=== PATIENT | male | born 1955 | race Caucasian/White ===

== ENCOUNTER 2018-11-07 07:45 | Inpatient (IN) | payer BC ==
[2018-11-07] MEDS ORDERED: NS 0.9% 1000 ML** 1,000 ML IV ONE (07:56)
[2018-11-07] MEDS ORDERED: Albuterol 2.5 MG/3 ML NEB.SOL* (0.083%) INH ONE (08:04)
--- NOTE | 2018-11-07 08:06 | ED ---
Shortness of Breath - HPI Summary HPI Summary: Patient is a 63-year-old male who presents emergency department for shortness of breath and palpitations. Patient states he was diagnosed with bronchitis about a week ago and has had ongoing cough and wheeze. He also noted palpitations starting when he woke up today. He denies chest pain, fever, abdominal pain, vomiting, diarrhea, urinary symptoms. Past medical history of obesity, paroxysmal atrial fibrillation, hypertension, diabetes. Patient states that he goes in and out of A. fib without one time a week. He states the episodes last about 5-10 minutes and resolved. Patient states he is only taking a aspirin daily and does not anticoagulated. Patient last saw cardiology , Dr. Major, in 2008. Were he had a stress test, echocardiogram, Holter monitor. Patient notes that Dr. 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 Patient since has been taking an aspirin daily. Symptoms are moderate in severity. No current modifying factors. Patient currently taking diltiazem ER 360 mg, atenolol 25 mg daily, Actos and Lantus. - History of Current Complaint Chief Complaint: EDDysrhythmPalp Time Seen by Provider: 11/07/18 07:56 Hx Obtained From: Patient - Allergy/Home Medications Allergies/Adverse Reactions: Allergies Allergy/AdvReac Type Severity Reaction Status Date / Time clavulanic acid Allergy Diarrhea Verified 11/07/18 08:12 Home Medications: Home Medications Albuterol HFA INHALER* [Ventolin HFA Inhaler*] 2 puff INH Q4H PRN 11/07/18 [ History Confirmed 11/07/18] Aspirin [Aspirin Childrens 81 MG] 81 mg PO DAILY 11/07/18 [History Confirmed 08/23] Atenolol TAB* [Tenormin TAB* 25 MG] 25 mg PO DAILY 11/07/18 [History Confirmed 11/07/18] Insulin Glargine,Hum.rec.anlog [Lantus Solostar 5x3 ML PENS] 46 units SUBCUT DAILY 11/07/18 [History Confirmed 11/07/18] Pioglitazone TAB* [Actos TAB*] 45 mg PO DAILY 11/07/18 [History Confirmed ] dilTIAZem HCl [Diltiazem HCl ER] 360 mg PO DAILY 11/07/18 [History Confirmed 08/23] PMH/Surg Hx/FS Hx/Imm Hx Previously Healthy: Yes Infectious Disease History: No Infectious Disease History: Denies: Traveled Outside the [place] in Last 30 Days - Family History Known Family History: Positive: Non-Contributory - Social History Occupation: Employed Full-time Lives: Alone Review of Systems Constitutional: Negative Negative: Fever, Chills Eyes: Negative ENT: Negative Positive: Palpitations Positive: Shortness Of Breath, Cough Gastrointestinal: Negative Negative: Abdominal Pain, Vomiting, Diarrhea Genitourinary: Negative Skin: Negative Neurological: Negative All Other Systems Reviewed And Are Negative: Yes Physical Exam Triage Information Reviewed: Yes Vital Signs On Initial Exam: Initial Vitals Temp Pulse Resp BP Pulse Ox 98.4 F 103 16 162/88 95 11/07/18 07:48 11/07/18 07:48 11/07/18 07:48 11/07/18 07:48 11/07/18 07:48 Vital Signs Reviewed: Yes Appearance: Positive: Well-Appearing - Obese. Pt. sitting up in bed in NAD. Breathing easily on RA. Family member present. Skin: Positive: Warm, Dry Head/Face: Positive: Normal Head/Face Inspection Eyes: Positive: Normal, EOMI, YESENIA Neck: Positive: Supple Respiratory/Lung Sounds: Positive: Other - Diminished breath sounds throughout with mild expiratory wheeze in bases. Cardiovascular: Positive: IRR Abdomen Description: Positive: Nontender, Soft Musculoskeletal: Negative: Edema Left, Edema Right Neurological: Positive: Normal, CN Intact II-III Psychiatric: Positive: Affect/Mood Appropriate Diagnostics - Vital Signs Vital Signs Temp Pulse Resp BP Pulse Ox 11/07/18 07:48 98.4 F 103 16 162/88 95 - Laboratory Result Diagrams: 11/07/18 11:38 11/07/18 11:38 Lab Statement: Any lab studies that have been ordered have been reviewed, and results considered in the medical decision making process. Re-Evaluation - Re-Evaluation 1 Re-Evaluation Time: 09:47 Change: Improved Comment: Patient states feeling better. Breathing is better. Course/Dx - Course Course Of Treatment: Pt. presenting with worsening SOB, cough, and palpitations. Afebrile. HR 103bpm, resp. 16, O2 saturation 95% on RA, BP 162/ 88. Pt. has diminished breath sounds and slight wheeze. Will give breathing treatment. ECG done at 0758 shows afib at a rate of 110bpm, normal axis, ST depression in lateral leads. CBC unremarkable. DDimer, 235, glucose 203, troponin 1.13, BNP 231. Case discussed with cardiology, Dr. Bangura at 0855. He recommends starting heparin and beta kylie for rate control. 0900: Pt.'s rate increased into the 160-170's and O2 saturation dropping in to the 80's. Pt. examined by Dr. Bowman. He recommends cardizem instead of BB given possible reactive airway disease. Pt. given bolus of cardizem and heparin and started on drips. Fluids stopped. 0910: Case discussed with cable supervisor, Dr. Mobley, who will see pt. 1030: Pt. examined by Dr. Mobley. He recommends admission to hospitalist service. 1057: Case discussed with Dr. Colon, hospitalist, she will see pt. CTA ordered to r/o PE. CTA per radiology: IMPRESSION: 1. LIMITED STUDY. THE ATTENUATION OF THE MAIN PULMONARY ARTERY IS LESS THAN 200. HOUNSFIELD UNITS WHICH IS CONSIDERED NONDIAGNOSTIC FOR THE DETECTION OF PULMONARY. EMBOLISM. 2. THERE IS MULTIFOCAL AIRSPACE DISEASE THROUGHOUT BOTH LUNGS. 3. SMALL BILATERAL PLEURAL EFFUSIONS. 4. CHOLELITHIASIS - Diagnoses Differential Diagnosis/HQI/PQRI: Positive: Asthma, Bronchitis, CHF, COPD Exacerbation, [place], Pneumonia Provider Diagnoses: Atrial fibrillation, CHF (congestive heart failure) - Critical Care Time Critical Care Time: 30-74 min - 30 minutes including direct pt. care and consultations. Excludes billable procedures. Discharge - Sign-Out/Discharge Documenting (check all that apply): Patient Departure Patient Received Moderate/Deep Sedation with Procedure: No - Discharge Plan Condition: Stable Disposition: ADMITTED TO [facility] - Billing Disposition and Condition Condition: STABLE Disposition: Admitted to [facility]
[2018-11-07 08:29] LABS: ABS Eosinophils 0.2 10^3/ul (0-0.6); ABS Lymphocytes 1.1 10^3/ul (1.0-4.8); ABS Monocytes 0.6 10^3/ul (0-0.8); ABS Neutrophils 5.6 10^3/ul (1.5-7.7); Eosinophil % 2.3 %; Hematocrit 39 % (42-52); Lymphocyte % 14.6 %; Mean Corpuscular HGB Conc 33 g/dL (31-36); Mean Corpuscular Hemoglobin 29 pg (27-31); Mean Corpuscular Volume 86 fL (80-94); Mean Platelet Volume 7.4 fL (7.4-10.4); Nucleated Red Blood Cells % 0.1; Platelet Count 239 10^3/uL (150-450); Red Blood Count 4.53 10^6 /uL (4.18-5.48); Red Cell Distribution Width 14 % (10.5-15); White Blood Count 7.6 10^3/uL (3.5-10.8)
[2018-11-07 08:40] LABS: ALT 13 U/L (7-52); AST 18 U/L (13-39); Albumin 3.9 g/dL (3.2-5.2); Albumin/Globulin Ratio 1.2 (1-3); Alkaline Phosphatase 89 U/L (34-104); Anion Gap 7 mmol/L (2-11); BUN/Creatinine Ratio 17.3 (8-20); Blood Urea Nitrogen 19 mg/dL (6-24); CO2 Carbon Dioxide 27 mmol/L (22-32); Calcium 9.3 mg/dL (8.6-10.3); Chloride 103 mmol/L (101-111); EGFR African American 82.1 (>60); EGFR Non-African American 67.8 (>60); Globulin 3.2 g/dL (2-4); Glucose 203 mg/dL (70-100); Magnesium 2.1 mg/dL (1.9-2.7); Potassium 3.9 mmol/L (3.5-5.0); Sodium 137 mmol/L (135-145); Total Protein 7.1 g/dL (6.4-8.9)
[2018-11-07 08:50] LABS: Troponin I 1.13 ng/mL (<0.04)
[2018-11-07] MEDS ORDERED: Diltiazem IV push/loading dose 5 MG/ML 5 ML vial (25 mg) IV SLOW PU ONE ×3 (08:56→10:06)
[2018-11-07 09:03] LABS: INR 0.98 (0.82-1.09)
[2018-11-07] MEDS ORDERED: Iodixanol* (CONTRAST) 320 MG/ML 100 ML SDV IV ONE (09:11)
--- NOTE | 2018-11-07 09:13 | ED ---
Progress - Progress Note Progress Note: EVALUATING PATIENT AT REQUEST OF SOTERO JOYCE HPI: A 63 y/o M presents to ED with sudden-onset SOB this AM. Associated sx: pounding palpitations. Pt has had bronchitis for past 8 weeks. He sleeps with two pillows. He denies recent travel, surgery and long periods of inactivity. Denies PMHx: DVT. Denies FHx of DVT. 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 Sees Dr. Major, cardio, but last visit was approx 10 years ago. Vitals at bedside: HR: 152 bpm, BP: 168/124, O2 sat: 98%. PE: Constitutional: Well-developed, Well-nourished, Alert. (-) Distressed Skin: Warm, Dry HENT: Normocephalic; Atraumatic Eyes: Conjunctiva normal Neck: Musculoskeletal ROM normal neck. (-) JVD, (-) Stridor, (-) Tracheal deviation Cardio: Rhythm regular, rate normal, Heart sounds normal; Intact distal pulses; The pedal pulses are 2+ and symmetric. Radial pulses are 2+ and symmetric. (-) Murmur Pulmonary/Chest wall: Tachypniec, coarse rales Abd: Soft, (-) epigastric tenderness, (-) Distension, (-) Guarding, (-) Rebound Musculoskeletal: (-) Edema Lymph: (-) Cervical adenopathy Neuro: Alert, Oriented x3 Psych: Mood and affect Normal - Results/Orders Results/Orders: CXR as read by radiologist: IMPRESSION: THERE HAS BEEN INTERVAL DEVELOPMENT OF A PATTERN OF PULMONARY INTERSTITIAL EDEMA WITH PATCHY AIRSPACE DISEASE OF THE RIGHT LUNG BASE. GIVEN THE SHORT INTERVAL FROM THE PREVIOUS EXAMINATION, THIS LIKELY REPRESENTS ATELECTASIS. ED provider has reviewed this report. Re-Evaluation - Re-Evaluation 1 Re-Evaluation Time: 09:47 Change: Improved Comment: Patient states feeling better. Breathing is better. Course/Dx - Course Course Of Treatment: Evaluating patient at request of SOTERO Banegas. Patient is a 63 y/o M presenting with sudden-onset SOB this morning. He reports bronchitis for past 8 weeks. No PMHx: DVT. PE finds tachypnea, coarse rales. Patient given Diltiazem and Heparin IV in ED. DDx: rate-elevated CHF vs DVT. CXR shows "THERE HAS BEEN INTERVAL DEVELOPMENT OF A PATTERN OF PULMONARY INTERSTITIAL EDEMA WITH PATCHY AIRSPACE DISEASE OF THE RIGHT LUNG BASE. GIVEN THE SHORT INTERVAL FROM THE PREVIOUS EXAMINATION, THIS LIKELY REPRESENTS ATELECTASIS. " - Diagnoses Provider Diagnoses: Atrial fibrillation, CHF (congestive heart failure) Discharge - Sign-Out/Discharge Documenting (check all that apply): Patient Departure - ADMIT Patient Received Moderate/Deep Sedation with Procedure: No - Discharge Plan Condition: Stable Disposition: ADMITTED TO [facility] Referrals: Asher Gaffney MD [Primary Care Provider] - - Attestation Statements Document Initiated by Scribe: Yes Documenting Scribe: Kristen Del Rio Provider For Whom Scribe is Documenting (Include Credential): Dr. Shorty Bowman MD Scribe Attestation: Kristen Venegas, scribed for Dr. Shorty Bowman MD on 11/07/18 at 1058. Status of Scribe Document: Ready
[2018-11-07 09:15] LABS: TSH (Thyroid Stimulating Horm) 3.65 mcIU/mL (0.34-5.60)
[2018-11-07] MEDS ORDERED: Heparin DRIP 25,000 UNITS(*) 25,000 UNITS/500 ML BAG IV SCH (09:15)
[2018-11-07] MEDS ORDERED: Heparin DRIP 25,000 UNITS(*) 25,000 UNITS/500 ML BAG ONE (09:17)
[2018-11-07] MEDS: Heparin VIAL(*) 5000 UNITS/ML VIAL (FIVE THOUSAND) IV SCH ×2 (09:18→14:00)
[2018-11-07] MEDS ORDERED: Iodixanol 320 (CONTRAST) 100 ML SDV IV ONE (09:48)
[2018-11-07] MEDS ORDERED: Diltiazem IV VIAL* 125 MG in NS 0.9% 100 ML* 100 ML IVPB SCH (10:00)
[2018-11-07] MEDS ORDERED: Diltiazem DRIP* 100 MG/100 ML ADDV.BAG IVPB SCH (10:00)
[2018-11-07 11:47] LABS: ABS Lymphocytes 0.6 10^3/ul (1.0-4.8); ABS Monocytes 0.6 10^3/ul (0-0.8); ABS Neutrophils 8.6 10^3/ul (1.5-7.7); Eosinophil % 0.2 %; Hematocrit 39 % (42-52); Lymphocyte % 5.8 %; Mean Corpuscular HGB Conc 33 g/dL (31-36); Mean Corpuscular Hemoglobin 29 pg (27-31); Mean Corpuscular Volume 86 fL (80-94); Mean Platelet Volume 7.2 fL (7.4-10.4); Platelet Count 254 10^3/uL (150-450); Red Blood Count 4.53 10^6 /uL (4.18-5.48); Red Cell Distribution Width 15 % (10.5-15); White Blood Count 9.8 10^3/uL (3.5-10.8)
[2018-11-07 12:27] LABS: Troponin I 0.91 ng/mL (<0.04)
[2018-11-07] MEDS ORDERED: Acetaminophen TAB* 325 MG PO PRN (12:33)
[2018-11-07] MEDS ORDERED: Albuterol HFA INHALER* 8 gm MDI INH PRN (12:36)
[2018-11-07 12:37] LABS: EGFR African American 90.6 (>60); EGFR Non-African American 74.9 (>60)
[2018-11-07] MEDS ORDERED: Dextrose 50% Syringe 50 ML* 25 GM/50 ML SYRINGE IV PUSH PRN (12:45)
[2018-11-07] MEDS: Atenolol TAB* 25 MG PO SCH (13:05)
[2018-11-07 13:08] LABS: Cholesterol 152 mg/dL; HDL Cholesterol 39.9 mg/dL; LDL Cholesterol 102 mg/dL; Triglycerides 49 mg/dL
[2018-11-07] MEDS ORDERED: Heparin for STEMI(*) 5,000 UNITS/ML 1 ML VIAL IV ONE (13:56)
--- NOTE | 2018-11-07 13:57 | HP ---
HISTORY AND PHYSICAL: DATE OF SERVICE: 11/07/18 CHIEF COMPLAINT: Shortness of breath. 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 He presents with acute shortness of breath. The shortness of breath developed this morning. The patient stated that for the past 8 weeks though he has "bronchitis" and had been taking nebulizer without great effect. He did have shortness of breath during this time, but not as severe as this morning. He has no history of COPD or lung disease. The patient today denies any chest pain , diaphoresis, presyncope, or syncope. He has never had any cardiac issues except for some hypertension for which he takes Tylenol. He does sometimes have palpitations and he does have a history of atrial fibrillation in the past. He only takes aspirin and a beta-kylie for this. Because of his work, he was told he would bruise easily and probably should refrain from full anticoagulation. This was several years back. The patient was seen in the emergency room. His systolic blood pressure is in the 140s to 150s with heart rate in the low 100s and he is breathing around 16 to 20 and satting between 91% and 97%. On ultrasound by myself in the emergency room, the patient has a large amount of B lines consistent with pulmonary edema. He also has moderately enlarged RV without any bowing into the LV. He has moderate LV function at the moment. In the ED, the patient received diltiazem pushes without relief of his heart rate. He was then placed on Heparin and a diltiazem drip. He was also assessed for a pulmonary embolism. However, secondary to some study issues, the study was inconclusive. PAST MEDICAL HISTORY: Hypertension; atrial fibrillation, on aspirin and beta- kylie; diabetes. PAST SURGICAL HISTORY: Negative. HOME MEDICATIONS: 1. Atenolol 25 mg p.o. daily. 2. Pioglitazone 45 mg p.o. daily. 3. Diltiazem HCl 360 p.o. daily. ALLERGIES: CLAVULANIC ACID gives him diarrhea. FAMILY HISTORY: No history of cardiac disease. 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 He has a rather strenuous job. He does not smoke or drink. REVIEW OF SYSTEMS: Negative on all 12-points except as stated above. PHYSICAL EXAMINATION GENERAL: He is conversational, joking and in no acute distress. HEENT: Temperature is 98.4, pulses 110 to 120, respiratory rate is 12 to 16, blood pressure is 150s to 160s, O2 sat is 93% to 98% on a nonrebreather. HEART: Irregularly regular. LUNGS: Crackles bilaterally. ABDOMEN: Obese, positive bowel sounds, soft, nontender to palpation. EXTREMITIES: 2+ lower extremity edema up to the knees. DIAGNOSTIC STUDIES/LAB DATA: White blood cell count is 7.6, hemoglobin is 13, hematocrit is 39, platelets 239. Sodium is 137, potassium is 3.9, chloride is 103, bicarb is 27, BUN 19, creatinine is 1.10. INR is 0.98. Magnesium 2.1, calcium is 9.3, troponin is 1.13. BNP is 231. TSH is 3.65, albumin is 3.9. EKG demonstrates rapid atrial fibrillation with some precordial ST depressions. Chest x-ray shows pulmonary edema bilaterally. ASSESSMENT: A 63-year-old diabetic with a history of atrial fibrillation, not on anticoagulation secondary to social issues, presents with acute shortness of breath. He was evaluated in the emergency room. On exam, he is in rapid atrial fibrillation. He is normotensive though. Systolic blood pressures have been in the 140s to 150s. He is in no acute distress. He does have findings of fluid overload and on exam especially in his lower extremities and his lungs. Ultrasound done by myself also showed significant fluid in his lungs on exam. Labs were remarkable for elevated troponins at 1.13, BNP of 231, elevated sugars. Otherwise, his labs were for the most part unremarkable. PLAN: 1. Cardiac. [id number] myocardial infarction with superimposed rapid atrial fibrillation and complicated by flash pulmonary edema. Would refrain from any further fluids. We will give him some Lasix as well. We will continue diltiazem drip. Continue to trend the troponins in light of his elevated troponins. The patient is at high risk for coronary artery disease. So, I would get Cardiology involved in case he needs a cardiac cath. As he again is high risk patient for coronary vascular disease. 2. Respiratory. It does not appear that he has massive or submassive PE at the moment. However, since we could not get a CTA, we will get a lower extremity Doppler to rule out lower extremity deep vein thromboses. He is already anticoagulated, so this would also cover him if he has any clot. Depending on how he does in the next 24 to 48 hours the primary team could assess whether or not he needs to have again a PE protocol CT. However, again he could be fully anticoagulated, so he is covered, incase he does have a PE. 3. Endo. Insulin sliding scale. Diabetic diet. As the patient is hemodynamically stable at the moment and not in acute respiratory failure, the patient does not need acute ICU interventions at the moment. However, if he were to decompensate or become hemodynamically unstable or develop acute respiratory failure, please reconsult critical care services for a possible ICU bed. [id number]/[facility] #: [id number] TAYE
--- NOTE | 2018-11-07 14:13 | ECHO ---
*[facility]* [facility] [place] [address] Fax #: [phone] Patient: Julio Cesar, Height: 71 in / 180.3 Jaspal alvarez : 1955 Weight: 249.5 lb / Study Date: 11/07/2018 113.4 kg Age: 63 BP: Gender: M BMI/BSA: 34.9 kg/m^2 / HR: 2.42 m^2 *Kiln Mechanic: * Namrata Bills [facility] *Referring Physician: * Sherman Banegas *Reading Physician: * Dexter Bangura MD Conclusions Summary: 1. Left ventricle: The cavity size is normal. Wall thickness is mildly increased. Systolic function is mildly reduced. The estimated ejection fraction is 45-50%. Wall motion is normal; there are no regional wall motion abnormalities. 2. Right ventricle: The cavity size is normal. Wall thickness is mildly to moderately increased. 3. Mitral valve: There is mild to moderate regurgitation. 4. Aortic valve: There is no evidence of stenosis. 5. Tricuspid valve: There is no significant regurgitation. Unable to estimate PASP. 6. Pericardium, extracardiac: There is no significant pericardial effusion. Study data: Procedure: Transthoracic echocardiography was performed. Complete 2D, spectral Doppler, and color flow Doppler. Location: Procedure room. Findings Left ventricle: The cavity size is normal. Wall thickness is mildly increased. Systolic function is mildly reduced. The estimated ejection fraction is 45-50%. Wall motion is normal; there are no regional wall motion abnormalities. Left ventricular diastolic function parameters are indeterminate. Right ventricle: The cavity size is normal. Wall thickness is mildly to moderately increased. Systolic function is normal. Left atrium: The atrium is normal in size. Right atrium: The atrium is normal in size. Mitral valve: The leaflets are mildly thickened. There is no evidence of stenosis. There is mild to moderate regurgitation. Aortic valve: Not well visualized. The leaflets are mildly thickened. There is no evidence of stenosis. There is no significant regurgitation. Tricuspid valve: The leaflets are normal thickness. There is no evidence of stenosis. There is no significant regurgitation. Pulmonic valve: Not well visualized. There is no significant regurgitation. Aorta: Aortic root: The aortic root is mildly dilated. Ascending aorta: The ascending aorta is appears normal. Aortic arch: The aortic arch is mildly dilated. Pericardium: There is no significant pericardial effusion. Pulmonary arteries: Not well visualized. Systemic veins: Inferior vena cava: The vessel is dilated. The respirophasic diameter changes are in the normal range (>= 50%). Measurements Left ventricle Value Ref Aortic valve Value Ref JOSIAH, LAX 4.8 cm 4.2 - 5.8 Juan diam, ED 2.4 cm ---- ESD, LAX 3.1 cm 2.5 - 4.0 Peak v, S 1.42 m/sec ---- FS, LAX 35 % 25 - 43 Peak grad, S 8.1 mm Hg ---- PW, ED, LAX (H) 1.1 cm 0.6 - 1.0 EF 64 % 52 - 72 Mitral valve Value Ref E', lat juan, TDI (L) 9.5 cm/sec >=10.0 Peak E 1.19 m/sec - --- E/e', lat juan, 13 Peak A 0.01 m/sec ---- TDI VTI leaflet coapt 23.6 cm ---- Decel time 224 ms ---- LVOT Value Ref PHT 77 ms ---- Peak omar, S 1 m/sec Mean grad, D 2.7 mm Hg ---- Peak grad, S 4 mm Hg Peak grad, D 6.0 mm Hg ---- Peak E/A ratio 86.29 ---- Ventricular septum Value Ref MVA, PHT 2.9 cm^2 ---- IVS, ED (H) 1.3 cm 0.6 - 1.0 MR peak v 4.75 m/sec ---- ERO, PISA 0.33 cm^2 ---- Right ventricle Value Ref MR vol, PISA 40 ml ---- AW thickness, ED (H) 1.0 cm 0.1 - 0.5 JOSIAH, LAX 2.9 cm Aortic root Value Ref JOSIAH major ax, A4C (L) 2.7 cm 5.9 - 8.3 Root diam 3.6 cm <4.5 Left atrium Value Ref Ascending aorta Value Ref AP dim, ES 3.53 cm 3.00 - AAo AP diam, S 3.0 cm ---- 4.00 ML dim, A4C 3.5 cm Aortic arch Value Ref SI dim, A4C 5.5 cm Arch diam 3.6 cm ---- Vol/bsa, ES, 2-p 27 ml/m^2 16 - 34 Decending aorta Value Ref Right atrium Value Ref Raj peak omar 0.58 m/sec ---- SI dim, ES (H) 5.5 cm 3.4 - 5.3 ML dim, ES, A4C (H) 4.7 cm 2.6 - 4.4 Inferior vena cava Value Ref Estimated RAP 3 mm Hg Diam 2.8 cm ---- Legend: (L) and (H) alexi values outside specified reference range. Prepared and electronically signed by Dexter Bangura MD 11/07/2018 14:13
[2018-11-07 16:05] LABS: Troponin I 1.32 ng/mL (<0.04)
[2018-11-07] MEDS: Insulin LISPRO* 1 UNITS UNIT SUBCUT SCH (16:53)
[2018-11-07] MEDS: Insulin GLARGINE(*) 1 UNITS UNIT SUBCUT SCH (17:56)
[2018-11-07] MEDS ORDERED: Diazepam TAB(*) 5 MG PO PRN (18:41)
[2018-11-07] MEDS ORDERED: diPHENhydraMINE PO* 25 MG PO PRN (18:41)
--- NOTE | 2018-11-07 20:12 | CONS ---
CARDIOLOGY CONSULTATION: DATE OF CONSULT: 11/07/18 INDICATION FOR CONSULTATION: Atrial fibrillation, abnormal troponin level. HISTORY OF PRESENT ILLNESS: The patient is a 63-year-old gentleman with a history of paroxysmal atrial fibrillation. He had actually seen Dr. Major in 2008 for his paroxysmal atrial fibrillation. The patient states that over the past 2 weeks or so, he has been having episodes of epigastric discomfort. Sometimes they occur with exertion, sometimes at rest. He denied any belching associated with this epigastric discomfort. The patient states that when he went to do any activity in the last 2 weeks, he would feel more short of breath than his usual and have this epigastric discomfort. It would go away at rest. There is no association with food associated with this epigastric discomfort. This morning, the patient was awoken out of a sound sleep with severe shortness of breath. The patient states that it is difficult for him to take a deep breath. It was difficult from him to inhale. He was also having this epigastric discomfort. He denied any feeling of palpitations. He denied any lightheadedness, dizziness, or syncope. On arrival to the emergency room, the patient was in atrial fibrillation with rapid ventricular response. He was given IV Cardizem. His initial troponin level was 0.91, his second troponin was 1.32. The patient had an echocardiogram today, which showed low normal LV systolic function, ejection fraction of 50%. He had mild to moderate mitral regurgitation. No aortic stenosis. No significant tricuspid regurgitation. Unable to estimate PA systolic pressures. In speaking to the patient in the intensive care unit, he has no complaints. He is talking in full sentences. He has no discomfort. PAST MEDICAL HISTORY: Significant for: 1. Paroxysmal atrial fibrillation, which I think may be chronic. 2. Hypertension. PAST SURGICAL HISTORY: None. MEDICATIONS: Outpatient medications: 1. Atenolol 25 mg a day. 2. Actos 45 mg a day. 3. Insulin as directed. 4. Aspirin 81 mg a day. 5. Diltiazem 360 mg a day. ALLERGIES: CLAVULANIC ACID. 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 He denies tobacco or alcohol use. FAMILY HISTORY: No family history of early coronary artery disease. No history of atrial arrhythmias. REVIEW OF SYSTEMS: Positive for recent chest pain. Negative for fevers and chills. Negative for changes in bowel or bladder habits. Other 12-point review is unremarkable. PHYSICAL EXAM: Height is 6 feet, weight 250 pounds, temperature 97.8, heart rate is 66, blood pressure 124/75, respiratory rate is 17, oxygen saturation 94 % on room air. Sclerae anicteric. Oropharynx is pink without erythema. Carotids are 2+ without bruits. JVD is normal. Thyroid is normal. Cardiac exam: Irregular. S1, S2, without any murmurs, rubs, or gallops. PMI is normal. Lungs are clear to auscultation bilaterally. There is no dullness to percussion. Abdomen is soft, nontender, nondistended with normoactive bowel sounds. Extremities show no edema. He has 2+ pulses throughout. The patient is awake, alert, and oriented. He moves all 4 extremities equally. LABORATORY STUDIES: CBC within normal limits. Chemistry is within normal limits. BUN 17, creatinine 1.01. Total cholesterol 152, LDL 102, HDL of 40. IMAGING: EKG shows atrial fibrillation. No obvious ST depressions. IMPRESSION: This is a 63-year-old gentleman who came to the emergency room because of sudden onset of shortness of breath this morning. The patient has been experiencing epigastric discomfort with exertion over the last 2 weeks. The patient states he has paroxysmal atrial fibrillation. The patient states that originally they would occur every couple of months, but recently, it has been almost on a weekly basis that he has been having episodes of atrial fibrillation. The patient is in atrial fibrillation in the ICU and is unaware of that he is in atrial fibrillation. It is my evaluation that the patient probably now has been in chronic atrial fibrillation for quite some time. My evaluation is that the patient's sudden onset of shortness of breath today is more consistent with an acute coronary syndrome with an elevated troponin level than it is a sudden onset of atrial fibrillation. With that, I think it is my recommendation that the patient undergo cardiac catheterization. The patient does have risk factors of hypertension and diabetes. For now, my recommendation is the patient should have a cardiac catheterization. The patient will continue on his outpatient medications. Further recommendations pending results of his cardiac cath. At some point, we may consider cardioversion. [id number]/[facility] #: [id number] [facility] HOSPITALPedro Pablo
[2018-11-07] MEDS ORDERED: Morphine INJ* 2 MG/ML 1 ML SYRINGE (TWO MG - NEW SYRINGE VERSION) IV PRN (23:45)
[2018-11-08 00:10] LABS: Troponin I 1.59 ng/mL (<0.04)
--- NOTE | 2018-11-08 03:48 | HP ---
CC: Dr. Gaffney * HISTORY AND PHYSICAL: DATE OF ADMISSION: 11/07/18 PROVIDER: Ciera Caballero NP, Hospital Medicine. PRIMARY CARE PHYSICIAN: Dr. Gaffney. ATTENDING PHYSICIAN WHILE IN THE HOSPITAL: Dr. Terrie Colon * (dictated by Ciera Caballero NP). CHIEF COMPLAINT: Shortness of breath. HISTORY OF PRESENT ILLNESS: Mr. Harrell is a 63-year-old male who reports that he woke out of sleep at approximately 5:15 a.m. this morning. He felt like he could not get enough air in. He felt very short of breath. He does report that sitting up on the edge of the bed did help with his breathing some, but continued to be short of breath. He felt like his heart was skipping beats and that he was in atrial fibrillation. The patient reports that he does go in and out atrial fibrillation. He reports that he felt a tightness in his chest. He reports at home he took 2 baby aspirin for a total of 162 mg. The patient reports that over the past 9 weeks, he has been fighting bronchitis. He went to [facility] approximately 4 weeks ago and was treated for a sinus infection with antibiotics and reports that he was feeling better. He says over the last week , he is feeling quite well and his cough had subsided to the point he was only having occasional residual cough, but this morning when he woke at 5:15, he was significantly short of breath. The patient also reports that he has had left-sided chest pressure. The patient reports that when he carries groceries up the stairs in his house, he develops left- sided chest pressure. This has been happening for the past 2 weeks. He reports that it is relived with rest and subsides after approximately 5 minutes. He does report he has also had some increased shortness of breath with walking upstairs and doing activities in general for past 1 to 2 weeks and rest improves. He denies any significant weight gain. Denies any need for extra pillows for sleeping. The patient reports that he used to follow with Dr. Major, but has not seen a garbage stoker in several years. While in the emergency room, the patient had routine lab work drawn. He was placed on the monitor, he was found to be in rapid atrial fibrillation and had an elevated troponin. Due to these findings, we were asked to see and evaluate him for admission. PAST MEDICAL HISTORY: Significant for: 1. Diabetes type 2. 2. Atrial fibrillation. 3. Hypertension. 4. History of basal cell skin cancer. PAST SURGICAL HISTORY: Hernia repair. HOME MEDICATIONS: Include: 1. Diltiazem 360 mg p.o. daily. 2. Actos 45 mg p.o. daily. 3. Albuterol inhaler as needed for shortness of breath. 4. Lantus 46 units subcu daily. 5. Atenolol 25 mg p.o. daily. 6. Aspirin 81 mg p.o. daily. ALLERGIES: AUGMENTIN. FAMILY HISTORY: Father with history of atrial fibrillation. Brother and sisters with diabetes. Sister with skin cancer. SOCIAL HISTORY: The patient denies any tobacco, alcohol, or illicit drug use. He is single. He lives with his housemate. Surrogate decision maker in the event he is unable to make his own decision is his mom or female friend, Bere Edwards. He is a full code. REVIEW OF SYSTEMS: The patient denies any fever, chills, unintended weight weight loss. Denies any weight gain. He does reports some chest tightness, worse with exertion. Denies any edema. Denies any hemoptysis. He does reports shortness of breath. He does report a nonproductive cough. Denies any nausea, vomiting, diarrhea, or abdominal pain. Denies any gross hematuria, dysuria, focal weakness, or sensory loss. Denies any visual complaints, dysphagia, arthralgias, myalgias, rashes, lesions, or open sores. Denies any psychosis or anxiety. PHYSICAL EXAMINATION GENERAL: At this time, Mr. Harrell is a 63-year-old male. He is well developed, well nourished. He is resting comfortably on the stretcher in the emergency room. VITAL SIGNS: Blood pressure 147/92, heart rate is 98 to 107, respirations are 20, O2 saturations 97%, temperature was 98.4. HEENT: Head is atraumatic, normocephalic. Eyes: EOMs are intact. Sclerae anicteric and not pale. Oral mucous appeared to be moist. NECK: Supple. LUNGS: Diminished bilaterally with few scattered rhonchi in the bases. He has symmetrical raise of his chest. CARDIAC: S1, S2. Irregular rate and rhythm. No murmurs, rubs, or gallops. ABDOMEN: Soft and nontender. Bowel sounds are present x4. EXTREMITIES: He is able to move all 4 extremities with 5/5 strength. There is no edema. Pedal pulses are +2 bilaterally. Skin is intact. NEUROLOGIC: He is awake, alert, oriented x3. Speech is clear. Thought process is intact. There are no gross focal deficits. LABORATORY DATA AND DIAGNOSTIC STUDIES: WBCs 9.8, RBCs 4.53, hemoglobin was 13.0, hematocrit was 39, platelet count was 254. INR was 0.98. D-dimer was 235. Sodium 137, potassium 3.9, chloride 103, carbon dioxide 27, anion gap was 7, BUN was 19, creatinine 1.10, glucose was 203, hemoglobin A1c was 10.4, lactic acid 0.7, calcium 9.3, magnesium 2.1. Total bilirubin 0.40, ASTs were 18 , ALTs were 13, alkaline phosphatase was 89. Troponin was 1.13, repeat was 0.91. Cholesterol 152, LDL is 102, HDL was 39.9. TSH was 3.65. BNP was 231. Chest x-ray, radiologist's impression: This is a chest x-ray from 8:05; mild cardiomegaly, COPD with mild fibrotic changes. He had a CT of the chest, limited study, the attenuation of the main pulmonary artery is less than 200 Hounsfield units, which is considered nondiagnostic for detection of pulmonary embolism. There is multifocal airspace disease throughout both lungs, small bilateral pleural effusions, cholelithiasis. He had a repeat chest x-ray at 9:10, which showed there has been interval development of of pulmonary interstitial edema with patchy airspace disease of right lung base, given the short interval from previous exam likely represents atelectasis. He had a transthoracic echocardiogram. Left ventricle cavity size is normal, wall thickness is mildly increased, systolic function is mildly reduced, and estimated ejection fraction 45% to 50%, wall motion is normal, there is no regional wall motion abnormality. Right ventricle cavity size is normal, wall thickness is mildly to moderately increased. Mitral valve, there is mild to moderate regurg. Aortic valve, there is no evidence of stenosis. Tricuspid valve, there is no significant regurgitation to estimate the PASP. Pericardium , extra cardiac, there is no significant pericardial effusion. He had a venous Doppler of the bilateral lower extremities. No evidence of right or left lower extremity DVT. He had electrocardiogram which showed atrial fibrillation with mild elevation of the ST segment in aVR, ST depression in V2, V3, 4, 5. ASSESSMENT AND PLAN: Mr. Harrell is a 63-year-old male with past medical history significant for diabetes, atrial fibrillation, hypertension who presented to the emergency room with complaint of sudden onset of shortness of breath, occurring at approximately 5:15 this morning. He was found to be in rapid atrial fibrillation. He will be admitted to the ICU with: 1. Shortness of breath. I suspect this could be related to acute coronary syndrome. The patient does have an elevated troponin and ST changes on his EKG. Dr. Bangura from Cardiology was consulted. The patient was started on heparin drip. He took aspirin 162 mg at home prior to arrival. He was given albuterol neb in the emergency room. He was given Cardizem bolus total of 35 mg and then started on a drip. His heart did improve after the initiation of the Cardizem drip down into the 90s from the 140s. The patient was started on a heparin drip. We will continue the Cardizem drip at 5 mg per hour. I will add atenolol 25 mg p.o. now. I will continue on his heparin drip and further recommendations per Cardiology. We will continue to trend his troponin and repeat an EKG in the a.m. I did speak to Dr. Bangura, who will see the patient in consultation. 2. Diabetes. I will place him on Accu-Cheks a.c. and h.s. He will be placed on lispro sliding scale. I will hold his Actos and I will continue his Lantus. He does normally takes 46 units, so I will give him 30 units this evening as he is going to be n.p.o. for cardiac catheterization tomorrow after midnight. 3. History of atrial fibrillation. The patient is currently on a Cardizem drip. We will continue the Cardizem drip and continue his atenolol 25 mg p.o. daily. 4. Hypertension. He will continue on atenolol 25 mg p.o. daily. 5. Code status: He is a full code. 6. DVT prophylaxis: He is on a heparin drip. 7. FEN. He can have a heart healthy, no caffeine diet. TIME SPENT: Time spent on this admission was approximately 60 minutes, greater than half that time was spent at the bedside reviewing events leading thus far to his hospitalization, performing physical exam, and reviewing my plan of care. I have discussed this with my attending, Dr. Terrie Colon; she is in agreement with my plan. CIERA CABALLERO, ADMISSIONS OFFICER [id number]/CPS #: [id number] TAYE
[2018-11-08] MEDS ORDERED: Diltiazem IV VIAL* 125 MG in NS 0.9% 100 ML* 100 ML IVPB SCH (06:00)
[2018-11-08 06:50] LABS: ABS Eosinophils 0.1 10^3/ul (0-0.6); ABS Lymphocytes 1.3 10^3/ul (1.0-4.8); ABS Monocytes 0.9 10^3/ul (0-0.8); Eosinophil % 0.8 %; Hematocrit 39 % (42-52); Hemoglobin 12.9 g/dL (14.0-18.0); Lymphocyte % 11.8 %; Mean Corpuscular HGB Conc 33 g/dL (31-36); Mean Corpuscular Hemoglobin 29 pg (27-31); Mean Corpuscular Volume 87 fL (80-94); Mean Platelet Volume 7.7 fL (7.4-10.4); Platelet Count 232 10^3/uL (150-450); Red Blood Count 4.48 10^6 /uL (4.18-5.48); Red Cell Distribution Width 15 % (10.5-15); White Blood Count 11.3 10^3/uL (3.5-10.8)
[2018-11-08 07:00] LABS: BUN/Creatinine Ratio 14.9 (8-20); EGFR African American 98.4 (>60); EGFR Non-African American 81.3 (>60); Potassium 3.9 mmol/L (3.5-5.0)
[2018-11-08] MEDS ORDERED: NS 0.9% 1000 ML** 1,000 ML IV SCH (07:00)
[2018-11-08] MEDS ORDERED: Aspirin 81 mg CHEW TAB* 81 MG TAB.CHEW PO SCH (09:00)
[2018-11-08] MEDS: Atenolol TAB* 25 MG PO SCH (09:31)
[2018-11-08] MEDS: Insulin LISPRO* 1 UNITS UNIT SUBCUT SCH ×3 (09:33→17:13)
[2018-11-08] MEDS ORDERED: Aspirin 81 mg CHEW TAB* 81 MG TAB.CHEW PO ONE (10:53)
[2018-11-08 11:00] LABS: Troponin I 1.53 ng/mL (<0.04)
[2018-11-08] MEDS ORDERED: Iohexol 350 (CONTRAST) 200 ML MDV IV ONE ×2 (11:30→11:47)
[2018-11-08] MEDS ORDERED: Lidocaine 1% INJ* 10 MG/ML 30 ML SDV ONE ×2 (11:30→11:47)
[2018-11-08] MEDS ORDERED: Midazolam* 1 MG/ML 5 ML VIAL (5 MG) ONE (11:46)
[2018-11-08] MEDS ORDERED: VERAPAMIL 2.5 MG/ML 2 ML VIAL ** 5 mg/2 ml ONE (11:46)
[2018-11-08] MEDS ORDERED: Heparin 2 UNITS/ML IVPREMIX* 2,000 UNIT/1,000 ML BAG IV ONE (11:46)
[2018-11-08] MEDS ORDERED: fentaNYL* 50 MCG/ML 2 ML VIAL (100 MCG VIAL) ONE (11:46)
[2018-11-08] MEDS ORDERED: Heparin(*) 1000 UNIT/ML 10 ML VIAL CATH LAB IV ONE (11:46)
[2018-11-08] MEDS ORDERED: nitroGLYCERIN DRIP* 25,000 MCG/250 ML BTL ONE (11:47)
[2018-11-08] MEDS ORDERED: Heparin VIAL(*) 5000 UNITS/ML VIAL (FIVE THOUSAND) ONE (14:04)
[2018-11-08] MEDS ORDERED: Heparin VIAL(*) 5000 UNITS/ML VIAL (FIVE THOUSAND) IV SCH (15:00)
[2018-11-08] MEDS ORDERED: Heparin DRIP 25,000 UNITS(*) 25,000 UNITS/500 ML BAG IV SCH (15:00)
--- NOTE | 2018-11-08 17:03 | PN ---
Subjective Date of Service: 11/08/18 Interval History: HOSPITALIST PROGRESS NOTE Patient seen and examined at bedside. Care reviewed and d/w Brittni Milian RN. He feels well today.Chest pain is resolved, denies dyspnea. Family History: Unchanged from Admission Social History: Unchanged from Admission Past Medical History: Unchanged from Admission Objective Active Medications: Acetaminophen (Tylenol Tab*) 650 mg PO Q4H PRN PRN Reason: FEVER/PAIN Albuterol (Ventolin Hfa Inhaler*) 2 puff INH Q4H PRN PRN Reason: SOB/WHEEZING Atenolol (Tenormin Tab*) 25 mg PO DAILY [facility] Last Admin: 11/08/18 09:31 Dose: 25 mg Dextrose (D50w Syringe 50 Ml*) 12.5 gm IV PUSH .FOR FS < 60 - SS PRN PRN Reason: FS < 60 Heparin Sodium (Porcine) (Heparin Vial(*)) 0 units IV .PER PROTOCOL [facility] Last Admin: 11/08/18 14:59 Dose: 2,000 units Sodium Chloride (Ns 0.9% 1000 Ml) 1,000 mls @ 100 mls/hr IV .per rate ANDREEA Stop: 11/08/18 17:00 Last Admin: 11/08/18 10:38 Dose: 100 mls/hr Diltiazem HCl 125 mg/ Sodium (Chloride) 125 mls @ 5 mls/hr IVPB Q24H [facility]; Protocol Last Admin: 11/08/18 07:00 Dose: 5 mls/hr Heparin Sodium/Dextrose (Heparin Drip 25,000 Units(*)) 25,000 units in 500 mls @ 0 mls/hr IV PER RATE [facility]; Protocol Insulin Glargine (Lantus(*)) 30 units SUBCUT Q24H [facility] Last Admin: 11/07/18 17:56 Dose: 30 units Insulin Human Lispro (Humalog*) 0 units SUBCUT AC ANDREEA; Protocol Last Admin: 11/08/18 11:39 Dose: Not Given Morphine Sulfate (Morphine Inj (Syringe))*) 2 mg IV Q4H PRN PRN Reason: PAIN - MILD Last Admin: 11/07/18 23:53 Dose: 2 mg Vital Signs - 8 hr 11/08/18 11/08/18 11/08/18 09:00 09:01 09:15 Temperature Pulse Rate 85 83 85 Respiratory 18 17 17 Rate Blood Pressure 122/92 141/76 (mmHg) O2 Sat by Pulse 86 96 95 Oximetry 11/08/18 11/08/18 11/08/18 09:30 10:00 10:30 Temperature Pulse Rate 89 82 75 Respiratory 20 14 13 Rate Blood Pressure 124/71 125/67 122/73 (mmHg) O2 Sat by Pulse 95 98 97 Oximetry 11/08/18 11/08/18 11/08/18 11:00 11:08 12:30 Temperature 97.7 F Pulse Rate 84 Respiratory 24 21 16 Rate Blood Pressure 142/83 (mmHg) O2 Sat by Pulse 97 Oximetry 11/08/18 11/08/18 11/08/18 12:31 12:32 12:45 Temperature Pulse Rate 69 74 73 Respiratory 32 24 14 Rate Blood Pressure 114/58 (mmHg) O2 Sat by Pulse 90 91 94 Oximetry 11/08/18 11/08/18 11/08/18 13:00 13:15 13:30 Temperature Pulse Rate 77 75 74 Respiratory 15 19 10 Rate Blood Pressure 117/78 118/74 (mmHg) O2 Sat by Pulse 96 97 97 Oximetry 11/08/18 11/08/18 11/08/18 13:45 14:00 14:15 Temperature Pulse Rate 83 78 83 Respiratory 21 15 17 Rate Blood Pressure 127/73 133/77 116/71 (mmHg) O2 Sat by Pulse 95 95 95 Oximetry 11/08/18 11/08/18 11/08/18 14:30 14:45 15:00 Temperature Pulse Rate 75 77 69 Respiratory 15 17 15 Rate Blood Pressure 116/66 123/66 136/73 (mmHg) O2 Sat by Pulse 96 96 95 Oximetry 11/08/18 11/08/18 11/08/18 15:15 15:30 15:45 Temperature Pulse Rate 69 67 75 Respiratory 17 13 20 Rate Blood Pressure 128/66 122/70 135/70 (mmHg) O2 Sat by Pulse 96 97 96 Oximetry 11/08/18 11/08/18 11/08/18 16:00 16:15 16:30 Temperature Pulse Rate 77 75 72 Respiratory 14 14 15 Rate Blood Pressure 127/76 133/89 132/79 (mmHg) O2 Sat by Pulse 96 96 96 Oximetry Oxygen Devices in Use Now: OxyMask - 2 liters Appearance: Pleasant gentleman sitting up in bed in NAD. Eyes: No Scleral Icterus Ears/Nose/Mouth/Throat: Mucous Membranes Moist Neck: Trachea Midline Respiratory: Symmetrical Chest Expansion and Respiratory Effort, Clear to Auscultation Cardiovascular: RRR - Normal S1 and S2 Abdominal: NL Sounds; No Tenderness; No Distention Neurological: Alert and Oriented x 3, NL Muscle Strength and Tone Result Diagrams: 11/08/18 05:50 11/08/18 05:50 Assess/Plan/Problems-Billing Assessment: Mr Harrell is a 63yo M with PMH of type 2 DM, HTN, Afib, who presented to ED with c/o dyspnea and left sided chest pressure, found to have NSTEMI. - Patient Problems (1) NSTEMI (non-ST elevated myocardial infarction) Comment: - Cardiology input appreciated - cardiac cath showed triple vessel disease and Dr Bangura made arrangements with Dr Purdy for transfer to [facility] for CABG. - Continue medical management with Aspirin, Atenolol, Heparin drip. - LDL 102 - start high dose Atorvastatin. (2) Atrial fibrillation Comment: - Rate is controlled - will increase Atenolol and titrate Cardizem drip down. - Continue Heparin drip. (3) Type 2 diabetes mellitus Comment: - Poorly controlled - A1c 10.4. - Glucose on the lower side today - will decrease Lantus to 20 units and monitor. - Continue Lispro SS. (4) DVT prophylaxis Comment: - Heparin drip. (5) Full code status Status and Disposition: Inpatient.
[2018-11-08] MEDS ORDERED: Atenolol TAB* 25 MG PO ONE (17:12)
[2018-11-08] MEDS: Insulin GLARGINE(*) 1 UNITS UNIT SUBCUT SCH (17:14)
[2018-11-08] MEDS ORDERED: Insulin GLARGINE(*) 1 UNITS UNIT SUBCUT SCH (17:30)
[2018-11-08] MEDS ORDERED: Atorvastatin* 80 MG TAB PO ONE (21:00)
--- NOTE | 2018-11-09 01:21 | CATH ---
CC: Dr. Marvin Purdy, [facility], [facility]. * CARDIAC CATHETERIZATION: DATE OF PROCEDURE: 11/08/18 PROCEDURE: Cardiac catheterization including coronary angiography. INDICATION: Acute coronary syndrome, atrial fibrillation. The patient is a 63-year-old gentleman with a history of paroxysmal atrial fibrillation, history of diabetes, and hypertension, was admitted to the hospital with chest pain and shortness of breath. He had an elevated troponin level of 1.13 and echocardiogram showed normal LV size and systolic function. Ejection fraction of 50%, mild focal wall motion abnormality. Cardiac catheterization was recommended. DESCRIPTION OF PROCEDURE: The patient was brought to the procedure room in a fasting state. Informed consent had been obtained prior to the procedure. All labs were reviewed. The patient was placed supine on the procedure table. His right radial area was prepped and draped in the usual fashion. 1% lidocaine was used as local anesthesia. The radial artery was entered from Seldinger technique and a guidewire was placed. Over the guidewire, a 6-Chilean sheath introducer was placed. An infusion of verapamil and nitroglycerin was given. The patient was already on IV heparin. The patient underwent coronary angiography using the 6- Chilean TIG catheter. At the end of the procedure, all sheaths and catheters were removed. The patient tolerated the procedure well with no complications. A total of 65 cc of Omnipaque dye was used and a total of 1.5 minutes of fluoro time was used. FINDINGS: 1. Left main. The left main was normal in size. It bifurcated into the LAD and circumflex. The distal left main tapered to about 50%. There is mild calcification. 2. Left anterior descending artery. The LAD was normal in size. It gave off 3 small diagonal vessels. There is minimal calcification of the proximal LAD. The proximal LAD had a 50% stenosis, which was incorporated into the distal left main stenosis. The remainder of the vessels without disease. 3. Left circumflex artery. Circumflex artery was normal in size. It gave off 3 obtuse marginal branches, the proximal LAD had a long 70% to 80% stenosis. The mid vessel of the left circumflex artery was without disease. The distal left circumflex artery had an eccentric 90% stenosis, which had a good size OM3 vessel that fed the posterolateral wall. 4. Right coronary artery. The RCA was a large dominant vessel; it gives off the PDA. The proximal portion of the right coronary artery had an eccentric 70 % stenosis, but distal right coronary artery had a 50% stenosis. The PDA had an ostial 60% stenosis. The posterolateral branch, which is a large vessel, approximately 2.5 mm size had a 99% stenosis. There is a branch of the posterolateral branch that was approximately 2 mm in size that had an ostial 90 % stenosis. IMPRESSION: 1. Three vessel coronary artery disease. 2. Complex stenosis of the distal left main, proximal left anterior descending and proximal left circumflex artery, the maximal stenosis of 60%. 3. Critical stenosis of the third obtuse marginal branch of the left circumflex artery. 4. Multiple lesions in the right coronary artery as described above, the maximum stenosis was 99% stenosis in the posterolateral branch. RECOMMENDATION: The patient will undergo bypass surgery with DUFFY to the LAD, saphenous vein graft to the OM3 vessel and a saphenous vein graft to the PDA, posterolateral branch and high posterolateral branch. [id number]/CPS #: [id number] TAYE
[2018-11-09 02:36] LABS: ABS Eosinophils 0.2 10^3/ul (0-0.6); ABS Lymphocytes 1.3 10^3/ul (1.0-4.8); ABS Monocytes 0.9 10^3/ul (0-0.8); ABS Neutrophils 7.4 10^3/ul (1.5-7.7); Eosinophil % 2.1 %; Hematocrit 36 % (42-52); Hemoglobin 12.2 g/dL (14.0-18.0); Lymphocyte % 13.4 %; Mean Corpuscular HGB Conc 34 g/dL (31-36); Mean Corpuscular Hemoglobin 29 pg (27-31); Mean Corpuscular Volume 87 fL (80-94); Mean Platelet Volume 7.1 fL (7.4-10.4); Platelet Count 233 10^3/uL (150-450); Red Blood Count 4.19 10^6 /uL (4.18-5.48); Red Cell Distribution Width 15 % (10.5-15); White Blood Count 9.8 10^3/uL (3.5-10.8)
[2018-11-09 02:49] LABS: BUN/Creatinine Ratio 13.2 (8-20); EGFR Non-African American 84.4 (>60); Potassium 3.9 mmol/L (3.5-5.0)
[2018-11-09 02:50] LABS: Calcium 8.6 mg/dL (8.6-10.3); EGFR African American 102.1 (>60)
[2018-11-09] MEDS ORDERED: Atenolol TAB* 50 MG PO SCH (04:00)
--- NOTE | 2018-11-09 05:18 | DS ---
CC: Dr. Gaffney; Dr. Bangura; Dr. Purdy at [facility] DISCHARGE SUMMARY: DATE OF ADMISSION: 11/07/18 DATE OF TRANSFER: 11/09/18 PRIMARY CARE PROVIDER: Dr. Gaffney. CONSULTING HIGH SCHOOL LEARNING SUPPORT TEACHER: Dr. Bangura. ACCEPTING CARDIOTHORACIC SURGEON: Dr. Purdy at [facility]. DISCHARGE DIAGNOSES: 1. Non-ST elevation myocardial infarction. 2. Triple vessel coronary artery disease. 3. Atrial fibrillation. SECONDARY DIAGNOSES: 1. Type 2 diabetes. 2. Atrial fibrillation. 3. Hypertension. 4. History of basal cell skin carcinoma. PAST SURGICAL HISTORY: Status post hernia repair. MEDICATIONS: At the time of transfer: 1. Acetaminophen 650 mg p.o. q.4 hours p.r.n. pain or fever. 2. Albuterol 2 puffs inhaled q.4 hours p.r.n. shortness of breath or cough. 3. Aspirin 81 mg p.o. daily. 4. Atenolol 50 mg p.o. daily. 5. Atorvastatin 80 mg p.o. at bedtime. 6. Cardizem drip at 5 mg an hour. 7. Heparin drip. 8. Lantus 20 units subcutaneously at bedtime. 9. Lispro sliding scale. 10. Morphine 2 mg IV q.4 hours p.r.n. severe pain. HOSPITAL COURSE: Mr. Harrell is a 63-year-old male with a past medical history as stated above that pr esented to the emergency room with complaints of acute shortness of breath associated with palpitatio ns and chest pressure. For more details about his presentation, I refer you to the history and physi jillian dictated by Dr. Mobley and Ciera Caballero, nurse practitioner. The patient was found to have a non-ST elevation NV with an initial troponin of 1.13 that peaked at 1 .59. As part of his workup, the patient had a CTA of the chest. It was a limited study, nondiagnost ic for the detection of pulmonary embolism with multifocal airspace disease throughout both lungs and small bilateral pleural effusions. Lower extremity Doppler showed no evidence of lower extremity DV T. At this point, the impression is the patient's symptoms are likely secondary to congestive heart failure, atrial fibrillation and non-ST elevation NV and pulmonary embolism is lower on the list. In any case, the patient has been anticoagulated. Transthoracic echocardiogram showed ejection fraction of 45% to 50% with normal wall motion and no re gional wall motion abnormalities. The right ventricle showed a normal sized cavity. Wall thickness is mildly to moderate increased and mild-to- moderate mitral regurgitation. No evidence of aortic st enosis. The patient's EKG showed atrial fibrillation with some ST depressions on the precordial leads. He wa s seen in consultation by Cardiology (Dr. Bangura). So, the patient was seen in consultation by Cardio logy (Dr. Bangura) and his impression was the patient was a 63-year-old gentleman, who came to the [facility] room because of sudden onset of shortness of breath associated with epigastric discomfort with exertion for the past 2 weeks. He felt that his symptoms were more compatible with an acute coronary syndrome than symptomatic atrial fibrillation. He recommended medical management and cardiac cathet erization that the patient underwent on 11/08/18. The patient was found to have triple vessel disease. Dr. Bangrua discussed the case with Dr. Purdy and arrangements were made. The patient has accepted a transfer to [facility] to pursue CABG. At the time of this dictation, the patient is chest pain free with improvement of his dyspnea and abl e to maintain oxygen saturation greater than 90% with 2 L of supplemental oxygen. PHYSICAL EXAMINATION: Vital Signs: Temperature 98.6, heart rate is 87, respiratory rate is 18, oxyg en saturation 96% on 2 L nasal cannula, blood pressure is 136/72. General: The patient is a pleasan t gentleman lying in bed in no acute distress. CVS: Normal S1 and S2. Irregularly irregular. Ches t: Breath sounds present bilaterally with bibasilar crackles. No other added sounds. Abdomen is so ft. Bowel sounds present. Extremities: No edema. Neuro: He is alert and oriented x3. Able to mo ve all 4 extremities. DIET: Heart-healthy diet. ACTIVITIES: Bedrest. DISPOSITION: To [facility]. STATUS WHILE IN THE HOSPITAL: Inpatient. CONDITION AT THE TIME OF DISCHARGE: Guarded. Please keep in mind this is a summarized version of this patient's hospital stay. If you need more in formation, please feel free to call me at [phone] or please obtain the full medical records. TIME SPENT: Approximately 50 minutes was spent to complete this discharge. [id number]/[facility] #: [id number]
[2018-11-09 05:55] VITALS: BP 154/89
== END 2018-11-09 05:45 | disposition short-term general hospital (02) | DRG 190 ==
LOC: ED 07:45 → ICU 12:33
PROVIDERS: ADMIT Hospitalist; ATTEND Internal Medicine
PROC: B2111ZZ Fluoroscopy of Multiple Coronary Arteries using Low Osmolar Contrast (ICD-10-PCS; principal; 2018-11-08 11:45)
DX: I21.4 Non-ST elevation (NSTEMI) myocardial infarction (principal); I26.99 Other pulmonary embolism without acute cor pulmonale; I25.10 Atherosclerotic heart disease of native coronary artery without angina pectoris; E11.9 Type 2 diabetes mellitus without complications; I34.0 Nonrheumatic mitral (valve) insufficiency; I11.0 Hypertensive heart disease with heart failure; J44.9 Chronic obstructive pulmonary disease, unspecified; I50.9 Heart failure, unspecified; E66.9 Obesity, unspecified; I48.0 Paroxysmal atrial fibrillation; K80.20 Calculus of gallbladder without cholecystitis without obstruction; Z82.49 Family history of ischemic heart disease and other diseases of the circulatory system; Z80.8 Family history of malignant neoplasm of other organs or systems; Z83.3 Family history of diabetes mellitus; Z85.828 Personal history of other malignant neoplasm of skin; Z68.34 Body mass index [BMI] 34.0-34.9, adult; Z88.8 Allergy status to other drugs, medicaments and biological substances; Z79.4 Long term (current) use of insulin; Z79.82 Long term (current) use of aspirin
CPT/HCPCS: 36415; 71045; 71046; 71275; 76937; 80048; 80053; 80061; 82565; 83036; 83605; 83735; 83880; 84443; 84484; 84520; 85025; 85379; 85610; 85730; 87641; 93005; 93306; 93454; 93970; 99285; A9270-GY; J1644; J2250; J2270; J3010; Q9967

== ENCOUNTER 2019-06-28 11:03 | Emergency (ER) | payer BC ==
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
[2019-06-28 11:35] LABS: ABS Eosinophils 0.3 10^3/ul (0-0.6); ABS Lymphocytes 0.9 10^3/ul (1.0-4.8); ABS Monocytes 0.5 10^3/ul (0-0.8); ABS Neutrophils 4.5 10^3/ul (1.5-7.7); Eosinophil % 4.3 %; Hematocrit 41 % (42-52); Hemoglobin 13.3 g/dL (14.0-18.0); Mean Corpuscular HGB Conc 33 g/dL (31-36); Mean Corpuscular Hemoglobin 28 pg (27-31); Mean Corpuscular Volume 84 fL (80-94); Mean Platelet Volume 7.2 fL (7.4-10.4); Platelet Count 217 10^3/uL (150-450); Red Blood Count 4.83 10^6 /uL (4.18-5.48); Red Cell Distribution Width 15 % (10-15); White Blood Count 6.2 10^3/uL (3.5-10.8)
[2019-06-28 11:46] LABS: INR 3.48 (0.82-1.09)
[2019-06-28 11:54] LABS: Albumin 3.9 g/dL (3.2-5.2); Albumin/Globulin Ratio 1.3 (1-3); Calcium 8.7 mg/dL (8.6-10.3); EGFR African American 85.7 (>60); EGFR Non-African American 70.8 (>60); Globulin 2.9 g/dL (2-4); Potassium 4.9 mmol/L (3.5-5.0); Total Bilirubin 0.5 mg/dL (0.2-1.0); Total Protein 6.8 g/dL (6.4-8.9)
[2019-06-28] MEDS ORDERED: Metoprolol Tartrate TAB* 25 MG PO ONE (12:37)
[2019-06-28] MEDS ORDERED: oxyCODONE/Acetamin 5/325 MG* TAB PO PRN (15:36)
[2019-06-28] MEDS ORDERED: Morphine INJ* 2 MG/ML 1 ML SYRINGE (TWO MG - NEW SYRINGE VERSION) IV PRN (15:36)
[2019-06-28] MEDS ORDERED: Acetaminophen TAB* 325 MG PO PRN (15:36)
[2019-06-28] MEDS ORDERED: Polyethylene Glycol 3350* 17 GM PACKET PO PRN (15:44)
[2019-06-28] MEDS ORDERED: Dextrose 50% Syringe 50 ML* 25 GM/50 ML SYRINGE IV PUSH PRN (15:44)
[2019-06-28] MEDS ORDERED: Magnesium Hydroxide LIQ* 30 ML UDC PO PRN (15:44)
[2019-06-28] MEDS ORDERED: Senna TAB 8.6 mg* TAB PO PRN (15:44)
[2019-06-28] MEDS ORDERED: Insulin LISPRO* 1 UNITS UNIT SUBCUT SCH (16:30)
[2019-06-28] MEDS ORDERED: Metoprolol Succinate XL TAB* 25 MG PO ONE (17:17)
[2019-06-28] MEDS ORDERED: Morphine 4 MG/ML VIAL (1 ml) 4 MG/ML VIAL IV ONE (19:06)
[2019-06-28] MEDS ORDERED: Ondansetron INJ* 2 MG/ML VIAL IV ONE (19:07)
[2019-06-28 20:14] VITALS: BP 147/92
[2019-06-28] MEDS ORDERED: Insulin GLARGINE(*) 1 UNITS UNIT SUBCUT SCH (21:00)
[2019-06-28] MEDS ORDERED: Docusate CAP* 100 MG PO SCH (21:00)
[2019-06-28] MEDS ORDERED: Metoprolol Succinate XL TAB* 50 MG PO SCH (21:00)
[2019-06-29] MEDS ORDERED: Lisinopril TAB* 5 MG PO SCH (09:00)
== END 2019-06-28 19:25 | disposition short-term general hospital (02) ==
LOC: ED 11:03 → UNDOADMIN 15:36 → SSU 15:36 → ED 19:25
DX: S61.411A Laceration without foreign body of right hand, initial encounter (principal); S82.141A Displaced bicondylar fracture of right tibia, initial encounter for closed fracture; S82.831A Other fracture of upper and lower end of right fibula, initial encounter for closed fracture; S82.51XA Displaced fracture of medial malleolus of right tibia, initial encounter for closed fracture; S60.511A Abrasion of right hand, initial encounter; S80.211A Abrasion, right knee, initial encounter; W17.89XA Other fall from one level to another, initial encounter; Y93.89 Activity, other specified; Y92.9 Unspecified place or not applicable; Y99.0 Civilian activity done for income or pay; M25.061 Hemarthrosis, right knee; M19.041 Primary osteoarthritis, right hand; E11.9 Type 2 diabetes mellitus without complications; Z79.4 Long term (current) use of insulin; I48.91 Unspecified atrial fibrillation; Z79.01 Long term (current) use of anticoagulants; Z79.82 Long term (current) use of aspirin; I25.2 Old myocardial infarction; I10 Essential (primary) hypertension; Z95.1 Presence of aortocoronary bypass graft; Z88.8 Allergy status to other drugs, medicaments and biological substances
CPT/HCPCS: 12001; 36415; 71045; 80053; 85025; 85610; 96374; 96375; 99284